=== PATIENT | female | born 2000 | race Caucasian/White ===

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

== ENCOUNTER 2021-02-17 09:06 | Emergency (ER) | payer OTHER, SELFPAY ==
[2021-02-17 09:10] VITALS: BP 142/67; PULSE 102; RESP 18; TEMP 37.3; O2SAT 96; BMI 44.6
--- NOTE | 2021-02-17 10:05 | HMH.EDUTC ---
[place] Disposition Clinical Impression: Viral upper respiratory infection Disposition: Home, Self-Care Condition on Discharge: Good Instructions: DI for Viral Upper Respiratory Infection -- Adult, DI for COVID-19 (Suspected or Confirmed ), Preventing the Spread of Coronavirus Discharge Instructions Additional Instructions: *Monitor Temp, Over the counter Motrin or Tylenol as directed/as needed Tylenol every 4 hours and Motrin every 6 hours (as long as your family doctor has told you that you can take it) for fever or pain. and straight to ER if unable to lower temp less than 101.0 after medication given *Warm salt water gargles may help to soothe the throat *Throat Lozenges *Warm fluids like tea with honey may help to soothe the throat *Sleep elevated *Humidifier/Vaporizer *Flonase 2 sprays in each nostril daily but be aware that it may take 2-3 days before you notice improvement Your throat swab was sent for culture. Those results are typically sent to your primary care. Be sure to follow up in 2-3 days with your family doctor/primary care physician if no improvement so they can review those result and treat if necessary. If you don?t have a primary care doctor, I recommend you get one but in the mean time, you will have to return to a walk in clinic Follow up IMMEDIATELY for new or worsening symptoms or no Noticeable improvement over the next 48-72 hours. 911 for difficulty breathing or swallowing You were tested for today for COVID19 your test result should be back in the next 24-48 hours, you may check your results on the [facility] my health portal if you have trouble logging on or viewing your results you may call You was given a handout with instructions for Self Quarantine and Self isolation for while you wait on test results and what to do if they are positive If you are positive the Health Dept will be contacting you also Make sure to take your Vitamins Vit. C Vit D and Zinc if you can take them Prescriptions: Fluticasone Propionate [Flonase 50mcg nasal spray 16gm] 1 spr NS DAILY #1 each Transmission Status: Pending to Clinic [facility] Referrals: Mechelle Sharma PA [Primary Care Provider] - As needed Forms: Work/School Release Time of Disposition: 10:15 Medical Decision Making - Issa Inquiry Pt receiving controlled substance: No Issa was queried for this patient: No Vital Signs: 02/17/21 09:10 Temperature 99.1 F Temperature Source Oral Pulse Rate [Right Brachial] 102 H Respiratory Rate 18 Blood Pressure [Right Arm] 142/67 H Blood Pressure Mean [Right Arm] 92 Blood Pressure Source [Right Arm] Automatic Cuff Blood Pressure Position [Right Arm] Sitting 02 Sat by Pulse Oximetry 96 Oxygen Delivery Method Room Air - Lab Data Lab results reviewed: Yes: I reviewed the patient's lab results. [place] HPI - General Stated complaint: congestion, sore throat, h/a, bilateral ear aches Time Seen by Provider: 02/17/21 10:05 Mode of Arrival: Ambulatory Source of Information: Patient Limitations: No Limitations Description of Symptoms (Recalled from Triage Doc. by RN): PATIENT C/O NASAL CONGESTION, RUNNY NOSE, EAR PAIN, SORE THROAT, SNEEZING AND HEADACHES SINCE YESTERDAY MORNING HEENT Symptoms (Recalled from RN notes): Yes Resp Symptoms (Recalled from RN notes): No Skin Symptoms (Recalled from RN notes): No MS Symptoms (Recalled from RN notes): No Functional Status (Recalled from RN notes): WNL - History of Present Illness Provider Complaint: Patient state that she started feeling bad yesterday States thats he has been having runny nose, sneezing, sore scratchy throat headache and pain in her ears States that this morning she was having some chills and bodyaches so she came in to get checked - Related Data Home Medications Medication Instructions Recorded Confirmed Norgestimate-Ethinyl Estradiol 1 tab PO DAILY 05/16/17 02/17/21 [Tri-Previfem Tablet] Previous Rx's Medication Instructions Recorde
[2021-02-17 10:14] LABS: UTC Strep Screen (Rapid) Negative (Negative)
[2021-02-17 10:17] VITALS: BP 142/67; PULSE 102; RESP 18; TEMP 37.3; O2SAT 96
== END 2021-02-17 10:21 | disposition home or self-care (01) ==
PROVIDERS: Emergency Provider Nurse Practitioner; PCP Physician Assistant
DX: J06.9 Acute upper respiratory infection, unspecified (principal); J45.909 Unspecified asthma, uncomplicated; Z20.822 Contact with and (suspected) exposure to COVID-19
CPT/HCPCS: 87880; 99203; C9803; G0463; U0003; U0005

== ENCOUNTER → 2022-02-15 15:23 | Outpatient (CLI) | payer OTHER, SELFPAY ==
[2022-02-15 16:48] LABS: Adenovirus,PCR Not Detected (NotDetected); Bordetella Pertussis Not Detected (NotDetected); Chlamydophila Pneumoniae, PCR Not Detected (NotDetected); Coronavirus 19, PCR Not Detected (NotDetected); Coronavirus 229E Not Detected (NotDetected); Coronavirus NL63 Not Detected (NotDetected); Coronavirus OC43 Not Detected (NotDetected); Coronovirus HKU1,PCR Not Detected (NotDetected); Human Metapneumovirus Not Detected (NotDetected); Influenza A, PCR Not Detected (NotDetected); Influenza AH1, 2009 Not Detected (NotDetected); Influenza AH1, PCR Not Detected (NotDetected); Influenza AH3,PCR Not Detected (NotDetected); Influenza B, PCR Not Detected (NotDetected); Mycoplasma Pneumoniae, PCR Not Detected (NotDetected); Parainfluenza 1, PCR Not Detected (NotDetected); Parainfluenza 2, PCR Not Detected (NotDetected); Parainfluenza 3, PCR Not Detected (NotDetected); Parainfluenza 4, PCR Not Detected (NotDetected); Respiratory Syncytial Virus Not Detected (NotDetected); Rhinovirus/Enterovirus Not Detected (NotDetected)
[2022-02-15 19:15] LABS: Basophils # 0.1 K/mm3 (0-0.2); Basophils % 0.6 % (0.1-2.0); Eosinophils # 0.1 K/mm3 (0.0-0.4); Eosinophils % 0.7 % (0.1-12.0); Hematocrit 42.8 % (37.0-47.0); Hemoglobin 13.9 g/dL (12.2-16.2); Lymphocytes # 3.1 K/mm3 (0.7-4.5); Lymphocytes % 29.2 % (10-50); Mean Corpuscular HGB Conc 32.6 g/dL (31.8-35.4); Mean Corpuscular Volume 82.8 fl (81-99); Mean Platelet Volume 10.5 fl (7.4-10.4); Monocytes # 0.8 K/mm3 (0.1-1.0); Monocytes % 7.1 % (1.7-9.3); Neutrophils # 6.7 K/mm3 (1.8-7.8); Neutrophils % 62.5 % (37.0-80.0); Platelet Count 311 K/mm3 (142-424); Red Blood Count 5.16 M/mm3 (4.20-5.40); Red Cell Distribution Width 13.6 % (11.5-17.5); White Blood Count 10.8 K/mm3 (4.8-10.8)
== END ==
PROVIDERS: PCP Nurse Practitioner Family; Visit Provider Nurse Practitioner Family
DX: Z20.822 Contact with and (suspected) exposure to COVID-19 (principal)
CPT/HCPCS: 36415; 85025; 87581; 87632; 87798; C9803; U0003; U0005

== ENCOUNTER 2023-10-12 11:12 | Outpatient (CLI) | payer BC, SELFPAY ==
[2023-10-12 12:39] LABS: HIV (1&2) Antibody Rapid NON REACTIVE
[2023-10-14 08:15] LABS: HCV Ab Non Reactive (Non Reactive); Hepatitis B Surface Antigen Negative (Negative); Rubella Antibodies, IgG 1.57 index (Immune >0.99)
[2023-10-14 11:22] LABS: Rapid Plasma Reagin Ab Titer Non Reactive titer (NonRea<1:1)
== END 2023-10-12 23:59 | disposition home or self-care (01) ==
LOC: LAB 11:13
PROVIDERS: PCP Physician Assistant; Visit Provider Obstetrics & Gynecology
DX: Z71.1 Person with feared health complaint in whom no diagnosis is made (principal)
CPT/HCPCS: 36415; 86593; 86762; 87340

== ENCOUNTER 2024-10-16 16:41 | Outpatient (CLI) | payer BC, SELFPAY | END 2024-10-16 23:59 | disposition home or self-care (01) | LOC: LAB.DROPOF 16:41 | PROVIDERS: PCP Obstetrics & Gynecology; Visit Provider Obstetrics & Gynecology | DX: N94.818 Other vulvodynia (principal) | CPT/HCPCS: 87798; 87801 ==